=== PATIENT | female | born 1960 | race Caucasian/White ===

== ENCOUNTER 2017-10-06 18:47 | Emergency (ER) | payer MEDICAID ==
[~2017-10-06] VITALS: Ht 157.5 cm; Wt 78.5 kg
[2017-10-06 19:01] VITALS: Ht 157.5 cm; Wt 78.5 kg
[2017-10-06 21:37] VITALS: BP 150/87
== END 2017-10-06 21:37 | disposition home or self-care (01) ==
LOC: ED 18:47
DX: M72.2 Plantar fascial fibromatosis (principal); E11.9 Type 2 diabetes mellitus without complications
CPT/HCPCS: 82962; J1885

== ENCOUNTER 2018-09-07 21:08 | Emergency (ER) | payer MEDICAID ==
[2018-09-07 21:18] VITALS: Ht 162.6 cm
[2018-09-07 21:55] LABS: BASOPHIL % 0.4 % (0-2); PLATELET COUNT 197 x10^3mcL (130-400)
[2018-09-07 22:02] LABS: CALCIUM 9.6 mg/dL (8.5-10.1); CARBON DIOXIDE 26.5 mmol/L (21-32); CHLORIDE SERUM 103 mmol/L (98-107); CREATININE SERUM 0.6 mg/dL (0.6-1.0); GFR1 > 60 mL/min; GLUCOSE SERUM 129 mg/dL (74-106); SODIUM SERUM 139 mmol/L (136-145)
[2018-09-07 22:05] LABS: ALKALINE PHOSPHATASE 103 U/L (46-116); ALT/SGPT 32 U/L (14-59); AST/SGOT 15 U/L (15-37); BILIRUBIN TOTAL 0.44 mg/dL (0.20-1.00); TOTAL PROTEIN, SERUM 8.2 g/dL (6.4-8.2)
[2018-09-07 22:30] LABS: UA SPECIFIC GRAVITY <=1.005 (1.005-1.035); microscopic required? YES; urine erythrocyte 1+ (NEGATIVE)
[2018-09-08 00:22] VITALS: BP 167/102
== END 2018-09-08 00:22 | disposition home or self-care (01) ==
LOC: ED 21:08
PROVIDERS: Emergency Medicine
DX: N39.0 Urinary tract infection, site not specified (principal); E11.9 Type 2 diabetes mellitus without complications
CPT/HCPCS: J0696; J7030

== ENCOUNTER 2019-12-23 12:30 | Emergency (ER) | payer MEDICAID ==
[~2019-12-23] VITALS: Ht 152.4 cm; Wt 69.4 kg
[2019-12-23 13:07] VITALS: Ht 152.4 cm; Wt 69.4 kg
[2019-12-23 15:22] LABS: ALKALINE PHOSPHATASE 114 U/L (46-116); ALT/SGPT 43 U/L (14-59); AST/SGOT 19 U/L (15-37); BILIRUBIN TOTAL 0.3 mg/dL (0.20-1.00); CALCIUM 8.6 mg/dL (8.5-10.1); CARBON DIOXIDE 27.2 mmol/L (21-32); CHLORIDE SERUM 105 mmol/L (98-107); CREATININE SERUM 0.6 mg/dL (0.6-1.0); GFR1 > 60 mL/min; GLUCOSE SERUM 251 mg/dL (74-106); POTASSIUM SERUM 4.3 mmol/L (3.5-5.1); SODIUM SERUM 138 mmol/L (136-145); TOTAL PROTEIN, SERUM 6.4 g/dL (6.4-8.2)
[2019-12-23 15:23] LABS: ALBUMIN 3.2 g/dL (3.4-5.0)
[2019-12-23 15:28] LABS: FREE T4 1.28 ng/dL (0.76-1.46); FREE THYROXINE INDEX 2.6 ug/dL (1.4-4.5); T4(THYROXINE) 6.9 ug/dL (4.7-13.3)
[2019-12-23 15:35] LABS: T3 TOTAL 0.92 ng/mL
[2019-12-23 16:28] VITALS: BP 147/77
== END 2019-12-23 16:28 | disposition home or self-care (01) ==
LOC: ED 12:30
PROVIDERS: Emergency Medicine
DX: E04.9 Nontoxic goiter, unspecified (principal); E11.9 Type 2 diabetes mellitus without complications; I10 Essential (primary) hypertension
CPT/HCPCS: 82962; 84439; J7030; Q9967